=== PATIENT | male | born 2000 | race American Indian/Alaskan Native ===

== ENCOUNTER 2020-06-11 16:33 | Emergency (ER) | payer SELFPAY ==
[2020-06-11 16:41] VITALS: BP 135/82
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
== END 2020-06-11 18:00 | disposition left against medical advice (07) ==
LOC: ED 16:33
DX: R41.82 Altered mental status, unspecified (principal); Z53.21 Procedure and treatment not carried out due to patient leaving prior to being seen by health care provider